=== PATIENT | male | born 1955 | race Caucasian/White ===

== ENCOUNTER 2024-12-19 04:42 | Emergency (ER) | payer OTHER ==
[~2024-12-19] VITALS: Ht 180.3 cm; Wt 83.9 kg
[~2024-12-19 04:42] MED LIST: ACET-2743 PO; ATOR-2 PO; DICY-20 PO; FAMO20TA8 PO; FLUT15.845 NS; IBUP-2077 PO; LEVO137T2 PO; ONDA-243 PO
[2024-12-19] MEDS ORDERED: 0.9%NACL 1000ML 1,000 ML IV ONE (05:00)
--- NOTE | 2024-12-19 05:22 | ERN ---
General Chief Complaint: Knee Injury/Swelling Stated Complaint: KNEE PAIN Time Seen by MD: 04:49 History of Present Illness Initial Comments Healthy 69-year-old male who noticed knee pain and increased swelling that started three days ago. He does not remember any trauma, he does not remember twisting it, he does not remember anything unusual about his left knee except that it started swelling approximately three days ago. The swelling has continued until today and he has started to have pain in the arch of his foot and in his Achilles tendon whenever he points his toe or extends his feet. His past medical history is unremarkable. Allergies: Coded Allergies: Sulfa (Sulfonamide Antibiotics) (Unverified Allergy, Unknown, 12/08/24) Home Meds Reported Medications Ondansetron (Ondansetron Odt) 4 Mg Tab.rapdis, 1 TAB PO Q6HPRN PRN for nausea/vomiting for 4 Days, #16 TAB 0 Refills 12/09/24 Dicyclomine HCl (Dicyclomine HCl) 10 Mg Capsule, 1 CAP PO TID for irritable bowel symptoms for 30 Days, #90 CAP 0 Refills 12/09/24 Fluticasone Propionate (Fluticasone Propionate) 50 Mcg/Actuation [place].susp, 2 SPRAY NS DAILY, #16 GM 0 Refills 25 Ibuprofen (Ibuprofen 800 mg Tab) 800 Mg Tab, 1 TAB PO TID PRN for PAIN for 10 Days, #30 TAB 0 Refills 12/09/25 Acetaminophen (Tylenol Extra Strength) 500 Mg Tablet, 1 TAB PO TIDP PRN for pain or fever for 3 Days, #10 TAB 0 Refills 25 Levothyroxine Sodium (Levothyroxine Sodium) 137 Mcg Tablet, 1 TAB PO DAILY for 30 Days, #30 TAB 0 Refills 25 Atorvastatin Calcium (Atorvastatin Calcium) 80 Mg Tablet, 1 TAB PO DAILY for 30 Days, #30 TAB 0 Refills 25 Famotidine (Famotidine) 20 Mg Tablet, 1 TAB PO BID for 30 Days, #60 TAB 0 Refills 12/09/24 Past Medical History Past Medical History: GERD, High Cholesterol, Hypothyroid Past Surgical History: Other Surgical History Other: L MENISCUS REPAIR ROS Dictation Review of systems is negative except for the swelling in his left knee. He has no swelling in any of his other joints. Including his right knee. No fevers no chills no nausea no vomiting no diarrhea no chest pain no shortness of breath no mental status changes urinating fine normal bowel movements. Physical Exam General Appearance: (+) no apparent distress Orientation: (+) oriented x 3 Eye: bilateral eye normal inspection, bilateral eye PERRL, bilateral eye EOMI Ear, Nose, Throat: (+) hearing grossly normal, (+) normal ENT inspection Neck: (+) normal inspection, (+) supple Respiratory: (+) chest non-tender, (+) lungs clear, (+) well ventilated Heart: (+) regular, (+) no gallop Gastrointestinal: (+) soft, (+) non-tender Extremities: (+) normal range of motion Extremities Comment Patient's left knee is very swollen and the swelling is starting to extend down his calf a little bit. On palpation it feels enlarged, but they are just isn't an obvious fluid wave. There is increased calf swelling. There was not much tenderness associated to palpation anywhere along his leg or left knee. Results EKG/XRAY/US/CT/MRI X-RAY Comment [address] [address] IMAGING REPORT Signed PATIENT: TRACEY ALEXANDRE MR#: [id number] : 1955 SEX: M AGE: 69 LOCATION: [facility] ORDER 0 STATUS: [facility] REPORT#: [id number] SERVICE 9 REASON: KNEE PAIN ORDERING PHYSICIAN: YURIY RAMIREZ MD PROCEDURE: KNEE 3V LT - KNEE 3VWS LT LEFT KNEE RADIOGRAPHS - 3 VIEWS INDICATION: Pain COMPARISON: None FINDINGS: AP, cross table lateral, and oblique views. No fracture or dislocation identified. Moderate to early-advanced tricompartmental left knee osteoarthropathy includes joint space narrowing, articular surface sclerosis/remodeling most pronounced along the medial compartment, and marginal osteophyte formation. Shallow medial tibial plateau downsloping. No significant joint effusion is present. Mild calcific plaque along the outflow and runoff arterial jarrell. No radiopaque foreign body noted. IMPRESSION: Moderate to early-advanced tricompartmental left knee osteoarthropathy. DICTATED BY: RENETTA RICHTER MD DATE: 12/19/24 0809 ELECTRONICALLY SIGNED BY: RENETTA RICHTER MD DATE: 12/19/24 0813 MDM X-rays have been ordered on his left knee, I will do a CT scan of his left lower extremity. I will order a CBC, ESR, CK. Depending on the CT scan results I may attempt a arthrocentesis. Differential at this point could be rheumatoid arthritis osteoarthritis gout pseudogout bursitis septic arthritis. Patient is a 69-year-old gentleman coming in to be evaluated for left knee pain. X-ray disclose osteoarthritis of the left knee. I did relay the message to the patient also advised him appropriate follow up with PCP and/or paint specialist. Knee immobilizer was placed patient states his symptoms improved significantly. Patient will be discharged in stable condition with a diagnosis of osteoarthritis of the left knee. ED Course Orders Procedure Category Date Status Time Knee 3vws Lt RAD 12/19/24 Resulted 05:20 Ketorolac PHA 12/19/24 Complete Tromethamine 30mg/Ml 06:30 Ketorolac PHA 12/19/24 Complete Tromethamine 30mg/Ml 07:00 Knee Immobilizer [place] 12/19/24 In Process 08:22 Current Medications Medications (Trade) Dose Ordered Sig/Cr Route PRN Reason Start Time Stop Time Status Last Admin Dose Admin Ketorolac Tromethamine (toRADol) 30 mg ONCE ONCE IM 12/19/24 07:00 12/19/24 07:01 DC 12/19/24 06:45 Ketorolac Tromethamine (toRADol) 30 mg ONCE ONCE IVP 12/19/24 06:30 12/19/24 06:40 DC Sodium Chloride 1,000 ml @ 0 mls/hr ONCE ONCE IV 12/19/24 05:00 12/19/24 05:01 Cancel Vital Signs Date Time Temp Pulse Resp B/P (MAP) Pulse Ox O2 Delivery O2 Flow Rate FiO2 12/19/24 08:28 64 16 134/79 99 Room Air* 0 21 12/19/24 07:33 98.1 65 16 136/76 99 Room Air* 0 21 12/19/24 04:48 97.9 79 16 166/85 99 Room Air 0 DX & DISP Disposition: Discharge Departure Impression: Primary Impression: Osteoarthritis of left knee Condition: Stable Scripts Diclofenac Sodium (Voltaren Arthritis Pain) 1 % Gel..gram. 4 GM TP TID for 7 Days, #1 TUBE Prov: BRITNEY THORNTON MD 12/19/24 Additional Instructions: FOLLOW-UP WITH PRIMARY CARE PROVIDER IN 1 TO 2 DAYS. TAKE MEDICATIONS DIRECTED HERE IN THE EMERGENCY ROOM. OKAY TO CONTINUE HOME MEDICATIONS UNLESS OTHERWISE DISCUSSED DURING YOUR VISIT IN THE EMERGENCY ROOM TODAY. RETURN TO YOUR NEAREST EMERGENCY ROOM IF SYMPTOMS WORSEN OR IF THERE IS NO IMPROVEMENT. CALL 911 IF YOU NEED IMMEDIATE ASSISTANCE. TAKE TYLENOL [id number] NEEDED AND IF NO CONTRAINDICATIONS ARE PRESENT. INCREASE ORAL HYDRATION. A WOUND CULTURE OR URINE CULTURE WAS ORDERED HERE IN THE EMERGENCY ROOM DEPARTMENT PLEASE FOLLOW-UP WITH PRIMARY CARE PROVIDER AND ADVISE THEM TO GET REPEAT PORTS FROM OUR FACILITY. IF YOU HAD ANY DOMINGO WRAP/SPLINTS THAT WERE APPLIED HERE, PLEASE DO NOT REMOVE THEM UNTIL YOU SEE YOUR PRIMARY CARE OR SPECIALTY. Referrals: Referrals: MARIE CARMONA (PCP) Time of Disposition: 08:34 YURIY RAMIREZ MD Dec 19, 2024 05:22 BRITNEY THORNTON MD Dec 19, 2024 08:35
[2024-12-19] MEDS ORDERED: ketOROlac 30MG VIAL (30MG/ML) IVP ONE (06:30)
[2024-12-19] MEDS: ketOROlac 30MG VIAL (30MG/ML) IM ONE (06:45)
[2024-12-19 07:33] VITALS: TEMP 98
--- NOTE | 2024-12-19 08:13 | HMCIMG ---
LEFT KNEE RADIOGRAPHS - 3 VIEWS INDICATION: Pain COMPARISON: None FINDINGS: AP, cross table lateral, and oblique views. No fracture or dislocation identified. Moderate to early-advanced tricompartmental left knee osteoarthropathy includes joint space narrowing, articular surface sclerosis/remodeling most pronounced along the medial compartment, and marginal osteophyte formation. Shallow medial tibial plateau downsloping. No significant joint effusion is present. Mild calcific plaque along the outflow and runoff arterial jarrell. No radiopaque foreign body noted. IMPRESSION: Moderate to early-advanced tricompartmental left knee osteoarthropathy.
[2024-12-19 08:28] VITALS: BP 134/79; PULSE 64; RESP 16; O2SAT 99
--- NOTE | 2024-12-19 08:29 | NUR ---
KNEE IMMOBILIZER PLACE ON LEFT KNEE, PT TOLERATING WELL.
[2024-12-19] MEDS ORDERED: DICL20GE TP (08:35)
== END 2024-12-19 08:40 | disposition home or self-care (01) ==
LOC: EDH 04:42
DX: M17.12 Unilateral primary osteoarthritis, left knee (principal); K21.9 Gastro-esophageal reflux disease without esophagitis; E78.00 Pure hypercholesterolemia, unspecified; E03.9 Hypothyroidism, unspecified; Z79.890 Hormone replacement therapy; Z79.899 Other long term (current) drug therapy; Z88.2 Allergy status to sulfonamides
CPT/HCPCS: 99283; 29505; 73562; 96372; J1885

== ENCOUNTER 2024-12-23 17:36 | Emergency (ER) | payer OTHER ==
[~2024-12-23] VITALS: Ht 182.9 cm; Wt 83.9 kg
[~2024-12-23 17:36] MED LIST changes: +DICL20GE TP
--- NOTE | 2024-12-23 17:55 | NUR ---
PT JUST NOW PLACED IN MY ED BED 9
--- NOTE | 2024-12-23 18:25 | ERN ---
ED Note History of Present Illness Stated Complaint: SWOLLEN LEFT LEG Chief Complaint: Lower Extremity Pain/Injury Time Seen by MD: 17:37 Time Seen by Midlevel: 17:37 Dictation: The patient is a 69-year-old male with a history of hypothyroidism, knee surgery who presents to the emergency department with complaints of left leg swelling onset five days ago. Patient denies any trauma. Denies any shortness of breath or chest pain. Patient reports he was recently hospitalized on December 08 for small-bowel obstruction and discharged on 12/13 Allergies: Coded Allergies: Sulfa (Sulfonamide Antibiotics) (Unverified Allergy, Unknown, 12/08/24) Home Meds Active Scripts Diclofenac Sodium (Voltaren Arthritis Pain) 1 % Gel..gram., 4 GM TP TID for 7 Days, #1 TUBE Prov:BRITNEY THORNTON MD 12/19/24 Reported Medications Ondansetron (Ondansetron Odt) 4 Mg Tab.rapdis, 1 TAB PO Q6HPRN PRN for nausea/vomiting for 4 Days, #16 TAB 0 Refills 12/09/24 Dicyclomine HCl (Dicyclomine HCl) 10 Mg Capsule, 1 CAP PO TID for irritable bowel symptoms for 30 Days, #90 CAP 0 Refills 12/09/24 Fluticasone Propionate (Fluticasone Propionate) 50 Mcg/Actuation [place].susp, 2 SPRAY NS DAILY, #16 GM 0 Refills 12/09/24 Ibuprofen (Ibuprofen 800 mg Tab) 800 Mg Tab, 1 TAB PO TID PRN for PAIN for 10 Days, #30 TAB 0 Refills 12/09/24 Acetaminophen (Tylenol Extra Strength) 500 Mg Tablet, 1 TAB PO TIDP PRN for pain or fever for 3 Days, #10 TAB 0 Refills 12/09/24 Levothyroxine Sodium (Levothyroxine Sodium) 137 Mcg Tablet, 1 TAB PO DAILY for 30 Days, #30 TAB 0 Refills 12/09/24 Atorvastatin Calcium (Atorvastatin Calcium) 80 Mg Tablet, 1 TAB PO DAILY for 30 Days, #30 TAB 0 Refills 12/09/24 Famotidine (Famotidine) 20 Mg Tablet, 1 TAB PO BID for 30 Days, #60 TAB 0 Refills 12/09/24 Past Medical History Past Medical History: Hypothyroid Surgical History: Other Surgical History Other: LEFT KNEE, RN Note Reviewed/Agreed w/PFSH: Yes Review of System Dictation Constitutional: Negative for fever,chills, and weight loss Eyes: Negative for injury, pain,redness, and discharge ENT: Negative for injury,pain or swelling Cardiovascular: Negative for chest pain, palpitations, and edema Respiratory: Negative for shortness of breath, cough, and wheezing, Abdomen/GI: Negative for abdominal pain, nausea, vomiting, diarrhea, and constipation Back: Negative for injury and pain : Negative for injury, bleeding and discharge MS/Extremity: Positive for left leg swelling Skin: Negative for rash, and discoloration Neuro: Negative for headache, weakness, numbness, tingling, and seizure Psych: Negative for suicide ideation, homicidal ideation, and hallucinations Initial Vital Sign VS Vital Signs Date Time Temp Pulse Resp B/P (MAP) Pulse Ox O2 Delivery O2 Flow Rate FiO2 12/23/24 17:47 97.9 80 18 148/81 97 Room Air 0 12/23/24 19:21 21 Physical Exam Dictation Vital Signs reviewed General Appearance: Alert, oriented x 3, no acute distress, well developed, nourished. Head and Face: non-traumatic. Eyes: PERRL, pink conjunctivas, eyelid no trauma, anterior chamber with arcus senilis. Ears: Pinnas intact and no signs of trauma or erythema ear canals clear and no discharge TM no erythema Nose: No discharge, no bleeding. Oropharynx: Mouth normal, tongue pink. pharynx clear,no erythema, tonsils no exudates, no abscesses noted, mucous membrane moist Neck: Supple, non-tender, no thyromegaly, no masses, no JVD, no bruits Breast:Deferred Chest:No tenderness, no crepitus, no paradoxical movement, no retractions Lungs:Clear, well-ventilated, symmetric, no rales, no wheezing, no rhonchi, no stridor, good breath sounds bilaterally Heart: Regular rate, regular rhythm, no murmur, no gallops Vascular left lower leg 2+ pitting edema Abdomen: Soft, positive bowel sounds, nondistended, no guarding, nontender, no rebound, no masses no hepatomegaly, no splenomegaly, no Houston's sign, no hernias. Rectal: Deferred Genital: Deferred Neurological: Normal speech, motor function intact, sensory function intact Musculoskeletal: Neck nontender, full range of motion, back nontender, full range of motion, Extremities: Left lower leg swelling, full range of motion, no wounds Skin: Color pink, dry, no turgor, no rash, no lacerations, no abrasions, no contusions. Lymphatic: Deferred Results (Laboratory/Radiology) Laboratory/Radiology Laboratory Tests Test 12/23/24 19:10 White Blood Count 7.2 K/uL (4.8-10.8) Red Blood Count 3.32 MIL/uL (4.50-6.20) L Hemoglobin 10.8 g/dL (14.0-18.0) L Hematocrit 32.5 % (42-54) L Mean Corpuscular Volume 97.9 fL (79-99) Mean Corpuscular Hemoglobin 32.5 pg (27.0-33.0) Mean Corpuscular Hemoglobin Concent 33.2 g/dL (32.0-36.0) Red Cell Distribution Width 14.0 % (11.0-15.5) Platelet Count 504 K/uL (130-400) H Mean Platelet Volume 8.7 fL (7.5-10.5) Immature Granulocyte % (Auto) 0.7 % (0-1) Neutrophils (%) (Auto) 54.2 % (40.0-77.0) Lymphocytes (%) (Auto) 32.1 % (21.0-51.0) Monocytes (%) (Auto) 8.1 % (3.0-13.0) Eosinophils (%) (Auto) 3.8 % (0.0-8.0) Basophils (%) (Auto) 1.1 % (0.0-5.0) Neutrophils # (Auto) 3.9 K/uL (1.8-7.7) Lymphocytes # (Auto) 2.3 K/uL (1.0-4.8) Monocytes # (Auto) 0.6 K/uL (0.1-1.0) Eosinophils # (Auto) 0.27 K/uL (0.00-0.70) Basophils # (Auto) 0.08 K/uL (0.00-0.20) Absolute Immature Granulocyte (auto 0.05 K/uL (0-1) Nucleated Red Blood Cells 0.0 % (0.0-0.19) Prothrombin Time 10.6 SEC (9.6-11.6) Prothromb Time International Ratio 1.00 (0.85-1.15) Activated Partial Thromboplast Time 31.8 SEC (26.3-35.5) Sodium Level 142 mmol/L (136-145) Potassium Level 4.1 mmol/L (3.5-5.1) Chloride Level 101 mmol/L (101-111) Carbon Dioxide Level 32 mmol/L (21-32) Blood Urea Nitrogen 12 mg/dL (7-18) Creatinine 0.8 mg/dL (0.5-1.3) Glomerular Filtration Rate Calc 96 mL/min (>90) Random Glucose 91 mg/dL (70-105) Total Calcium 8.5 mg/dL (8.5-10.1) Total Bilirubin 0.4 mg/dL (0.2-1.0) Direct Bilirubin 0.1 mg/dL (0.0-0.3) Aspartate Amino Transf (AST/SGOT) 37 U/L (10-37) Alanine Aminotransferase (ALT/SGPT) 29 U/L (12-78) Alkaline Phosphatase 82 U/L (50-136) B-Type Natriuretic Peptide 39 pg/mL (0-100) Total Protein 6.8 g/dL (6.0-8.3) Albumin 2.8 g/dL (3.5-5.0) L REASON: swelling ORDERING PHYSICIAN: RENZO MATT PROCEDURE: VENOUS UNI - US VENOUS DOPPLER UNILATERAL Exam Type: US VENOUS DOPPLER UNILATERAL Clinical Information: swelling Comparison: None Findings: The examination shows normal deep venous system. There is normal compressibility at all levels. There is no intraluminal clot. There is no occlusion. Adequate response is obtained on augmentation. Impression: No evidence of DVT. Labs Reviewed?: Yes EKG: (+) rhythm (Sinus rhythm) EKG Comment: Date:12/23/2024 Time:1757 Ventricular rate:74 AR interval:169 QRS [id number] QT/QTc:373 EKG interpretation: Sinus rhythm Reviewed by ED Attending no STEMI ED Course ED Course Orders Procedure Category Date Status Time Us Venous Doppler US 12/23/24 Resulted Unilateral 17:56 12 Lead Ekg Tracing- EKG 12/23/24 Complete Technical 17:56 Cbc With Differential LAB 12/23/24 Complete 18:12 Basic Metabolic Panel LAB 12/23/24 Complete 18:12 Pt And Ptt LAB 12/23/24 Complete 18:12 B-Type Natriuretic LAB 12/23/24 Complete Peptide 18:12 Hepatic Function Panel LAB 12/23/24 Complete 18:12 Vital Signs Date Time Temp Pulse Resp B/P (MAP) Pulse Ox O2 Delivery O2 Flow Rate FiO2 12/23/24 19:21 63 18 143/77 98 Room Air* 0 21 12/23/24 17:47 97.9 80 18 148/81 97 Room Air 0 Medical Decision Making MDM The patient is a 69-year-old male with a history of hypothyroidism, knee surgery who presents to the emergency department with complaints of left leg swelling onset five days ago. Patient denies any trauma. Denies any shortness of breath or chest pain. Patient reports he was recently hospitalized on December 08 for small-bowel obstruction and discharged on 12/13 CBC showed no leukocytosis, mild normocytic anemia, chemistry showed no electrolyte imbalance, normal coagulation. Ultrasound revealed no DVT. Patient with who range of motion to leg. Neurovascularly intact. Patient instructed to follow up with primary doctor in 1-2 days. Patient agrees to be discharged. Differential diagnosis: DVT, Ca's cyst, CHF Need for hospitalization: Patient does not meet criteria for hospitalization. There are no social concerns with this patient. DX & DISP Disposition: Discharge Departure Impression: Primary Impression: Swelling of left lower extremity Condition: Stable Additional Instructions: Please follow up with your primary doctor in 1-2 days. If symptoms worsen please return to ER. You can elevate your leg to help with the swelling. FOLLOW-UP WITH PRIMARY CARE PROVIDER IN 1 TO 2 DAYS. TAKE MEDICATIONS DIRECTED HERE IN THE EMERGENCY ROOM. OKAY TO CONTINUE HOME MEDICATIONS UNLESS OTHERWISE DISCUSSED DURING YOUR VISIT IN THE EMERGENCY ROOM TODAY. RETURN TO YOUR NEAREST EMERGENCY ROOM IF SYMPTOMS WORSEN OR IF THERE IS NO IMPROVEMENT. CALL 911 IF YOU NEED IMMEDIATE ASSISTANCE. TAKE TYLENOL OR MOTRIN [id number] NEEDED AND IF NO CONTRAINDICATIONS ARE PRESENT. INCREASE ORAL HYDRATION. A WOUND CULTURE OR URINE CULTURE WAS ORDERED HERE IN THE EMERGENCY ROOM DEPARTMENT PLEASE FOLLOW-UP WITH PRIMARY CARE PROVIDER AND ADVISE THEM TO GET REPEAT PORTS FROM OUR FACILITY. IF YOU HAD ANY DOMINGO WRAP/SPLINTS THAT WERE APPLIED HERE, PLEASE DO NOT REMOVE THEM UNTIL YOU SEE YOUR PRIMARY CARE OR SPECIALTY. Referrals: MARIE CARMONA (PCP) Time of Disposition: 20:09 I have examined patient, & reviewed all documents, & agreed W/ the Diagnosis, and Plan RENZO MATT [facility] Dec 23, 2024 18:25
--- NOTE | 2024-12-23 18:51 | EKG ---
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
--- NOTE | 2024-12-23 18:59 | NUR ---
STACI COMPLETE REPORT ENDORSED TO JOSE CRUZ DESAI
--- NOTE | 2024-12-23 19:21 | HMCIMG ---
Exam Type: US VENOUS DOPPLER UNILATERAL Clinical Information: swelling Comparison: None Findings: The examination shows normal deep venous system. There is normal compressibility at all levels. There is no intraluminal clot. There is no occlusion. Adequate response is obtained on augmentation. Impression: No evidence of DVT.
[2024-12-23 19:26] LABS: BASOPHILS # (AUTO) 0.08 K/uL (0.00-0.20); BASOPHILS % (AUTO) 1.1 % (0.0-5.0); EOSINOPHILS # (AUTO) 0.27 K/uL (0.00-0.70); EOSINOPHILS % (AUTO) 3.8 % (0.0-8.0); HEMATOCRIT 32.5 % (42-54); IMMATURE GRANULOCYTE ABSOLUTE 0.05 K/uL (0-1); LYMPHOCYTES # (AUTO) 2.3 K/uL (1.0-4.8); LYMPHOCYTES % (AUTO) 32.1 % (21.0-51.0); MEAN CORPUSCULAR HEMOGLOBIN 32.5 pg (27.0-33.0); MEAN CORPUSCULAR HGB CONC 33.2 g/dL (32.0-36.0); MEAN CORPUSCULAR VOLUME 97.9 fL (79-99); MONOCYTES # (AUTO) 0.6 K/uL (0.1-1.0); MONOCYTES % (AUTO) 8.1 % (3.0-13.0); NEUTROPHILS # (AUTO) 3.9 K/uL (1.8-7.7); NEUTROPHILS % (AUTO) 54.2 % (40.0-77.0); PLATELET COUNT (AUTO) 504 K/uL (130-400); RED BLOOD CELL COUNT(AUTO) 3.32 MIL/uL (4.50-6.20); WHITE BLOOD COUNT (AUTO) 7.2 K/uL (4.8-10.8)
[2024-12-23 19:36] LABS: CREATININE 0.8 mg/dL (0.5-1.3); POTASSIUM 4.1 mmol/L (3.5-5.1)
[2024-12-23 19:37] LABS: PROTHROMBIN TIME 10.6 SEC (9.6-11.6)
[2024-12-23 19:38] LABS: PARTIAL THROMBOPLASTIN TIME 31.8 SEC (26.3-35.5)
[2024-12-23 19:42] LABS: ALBUMIN 2.8 g/dL (3.5-5.0); BILIRUBIN,DIRECT 0.1 mg/dL (0.0-0.3); BILIRUBIN,TOTAL 0.4 mg/dL (0.2-1.0); TOTAL PROTEIN, SERUM 6.8 g/dL (6.0-8.3)
[2024-12-23 19:48] LABS: B-TYPE NATRIURETIC PEPTIDE 39 pg/mL (0-100)
[2024-12-23 20:18] VITALS: BP 148/72; PULSE 64; RESP 18; TEMP 98.2; O2SAT 97
== END 2024-12-23 20:19 | disposition home or self-care (01) ==
LOC: EDH 17:36
DX: M79.89 Other specified soft tissue disorders (principal); M79.662 Pain in left lower leg; E03.9 Hypothyroidism, unspecified; Z79.890 Hormone replacement therapy; Z79.899 Other long term (current) drug therapy; Z88.2 Allergy status to sulfonamides; Z98.890 Other specified postprocedural states
CPT/HCPCS: 36415; 80048; 80076; 83880; 85025; 85610; 85730; 93005; 93971; 99284